=== PATIENT | female | born 1995 | race Caucasian/White ===

== ENCOUNTER → 2021-11-28 | Outpatient (CLI) | payer OTHER ==
[2021-11-28 15:47] LABS: HEMATOCRIT 34.9 % (36.0-47.0); MEAN CORPUSCULAR HEMOGLOBIN 30.8 pg (27.0-33.0); MEAN CORPUSCULAR HGB CONC 34.4 g/dl (32.0-36.5); MEAN CORPUSCULAR VOLUME 89.5 fl (80.0-96.0); PLATELET COUNT, AUTOMATED 257 10^3/uL (150-450); WHITE BLOOD COUNT 9.7 10^3/uL (4.0-10.0)
[2021-11-28 17:07] LABS: HEPATITIS C VIRUS ABY INDEX < 0.0 INDEX (<0.8); HIV 1&2 SCREEN CENTAUR NEGATIVE (NEGATIVE)
[2021-11-28 17:19] LABS: GC DNA AMPLIFICATION NEGATIVE (NEGATIVE)
== END ==
LOC: M PLALAB 14:00
PROVIDERS: ATTEND Advanced Practice Midwife
DX: Z34.81 Encounter for supervision of other normal pregnancy, first trimester (principal)
CPT/HCPCS: 36415; 85027; 86762; 86780; 86803; 86850; 86900; 86901; 87088; 87186; 87340; 87389; 87810; 87850; G0463

== ENCOUNTER → 2022-02-02 | Outpatient (CLI) | payer OTHER | LOC: M PLALAB 11:50 | PROVIDERS: ATTEND Obstetrics & Gynecology | DX: Z34.82 Encounter for supervision of other normal pregnancy, second trimester (principal); Z3A.00 Weeks of gestation of pregnancy not specified ==

== ENCOUNTER → 2022-03-12 | Outpatient (CLI) | payer OTHER | LOC: M WHC 11:36 | PROVIDERS: ATTEND Obstetrics & Gynecology | DX: Z36.2 Encounter for other antenatal screening follow-up (principal); Z3A.23 23 weeks gestation of pregnancy ==

== ENCOUNTER → 2022-03-23 | Outpatient (REF) | payer OTHER | LOC: M SFHCWAGY 17:28 | PROVIDERS: ATTEND Advanced Practice Midwife | DX: Z34.82 Encounter for supervision of other normal pregnancy, second trimester (principal) ==

== ENCOUNTER → 2022-04-17 | Outpatient (CLI) | payer OTHER ==
[2022-04-17 14:02] LABS: HEMOGLOBIN 10.6 g/dl (12.0-15.5); MEAN CORPUSCULAR HEMOGLOBIN 31.3 pg (27.0-33.0); MEAN CORPUSCULAR HGB CONC 33.1 g/dl (32.0-36.5); MEAN CORPUSCULAR VOLUME 94.4 fl (80.0-96.0); PLATELET COUNT, AUTOMATED 261 10^3/uL (150-450); RED BLOOD COUNT 3.39 10^6/uL (4.00-5.40); WHITE BLOOD COUNT 13.9 10^3/uL (4.0-10.0)
[2022-04-17 15:38] LABS: GC DNA AMPLIFICATION NEGATIVE (NEGATIVE)
== END ==
LOC: M PLALAB 08:14
PROVIDERS: ATTEND Advanced Practice Midwife
DX: Z36.89 Encounter for other specified antenatal screening (principal); Z3A.24 24 weeks gestation of pregnancy

== ENCOUNTER → 2022-05-15 | Outpatient (CLI) | payer OTHER ==
[2022-05-15 17:53] LABS: ALBUMIN 2.6 GM/DL (3.2-5.2); ALT/SGPT 192 U/L (12-78); BILIRUBIN,TOTAL 0.4 MG/DL (0.2-1.0); BLOOD UREA NITROGEN 5 MG/DL (7-18); CALCIUM LEVEL 9.2 MG/DL (8.5-10.1); CARBON DIOXIDE LEVEL 25 MEQ/L (21-32); CHLORIDE LEVEL 105 MEQ/L (98-107); CREATININE FOR GFR 0.67 MG/DL (0.55-1.30); GLOMERULAR FILTRATION RATE > 60.0 (>60); GLUCOSE, FASTING 83 MG/DL (70-100); POTASSIUM SERUM 4.5 MEQ/L (3.5-5.1); SODIUM LEVEL 135 MEQ/L (136-145)
== END ==
LOC: M PLALAB 13:08
PROVIDERS: ATTEND Advanced Practice Midwife
DX: O99.713 Diseases of the skin and subcutaneous tissue complicating pregnancy, third trimester (principal)

== ENCOUNTER 2022-05-25 18:55 | Outpatient (CLI) | payer OTHER ==
[~2022-05-25] VITALS: Ht 160 cm; Wt 98.5 kg
[2022-05-25 19:14] VITALS: BP 139/75
[2022-05-25 20:05] LABS: ALBUMIN 2.7 GM/DL (3.2-5.2); ALT/SGPT 212 U/L (12-78); BILIRUBIN,TOTAL 0.2 MG/DL (0.2-1.0); BLOOD UREA NITROGEN 5 MG/DL (7-18); CALCIUM LEVEL 9.5 MG/DL (8.5-10.1); CARBON DIOXIDE LEVEL 23 MEQ/L (21-32); CHLORIDE LEVEL 110 MEQ/L (98-107); CREATININE FOR GFR 0.73 MG/DL (0.55-1.30); GLOMERULAR FILTRATION RATE > 60.0 (>60); GLUCOSE, FASTING 114 MG/DL (70-100); POTASSIUM SERUM 4.2 MEQ/L (3.5-5.1); SODIUM LEVEL 141 MEQ/L (136-145); TOTAL PROTEIN 6.1 GM/DL (6.4-8.2)
== END 2022-05-25 21:11 | disposition home or self-care (01) ==
LOC: M LDO 18:55
PROVIDERS: ATTEND Advanced Practice Midwife
DX: O26.893 Other specified pregnancy related conditions, third trimester (principal); R10.11 Right upper quadrant pain; O26.613 Liver and biliary tract disorders in pregnancy, third trimester; Z3A.33 33 weeks gestation of pregnancy
CPT/HCPCS: 36415; 59025; 76705; 76816; 76820; 80053; 82239; G0463

== ENCOUNTER → 2022-06-14 | Outpatient (REF) | payer OTHER | LOC: M PLALAB 15:48 | PROVIDERS: ATTEND Specialist | DX: Z34.83 Encounter for supervision of other normal pregnancy, third trimester (principal) ==

== ENCOUNTER 2022-06-26 08:02 | Inpatient (IN) | payer OTHER ==
[~2022-06-26] VITALS: Ht 160 cm; Wt 99.6 kg
[2022-06-26] VITALS (31 sets, daily range): BP systolic 106–174; BP diastolic 51–102
[2022-06-26] MEDS ORDERED: PRENTAB9 PO (09:06)
[2022-06-26] MEDS ORDERED: URSO300C3 PO (09:08)
[2022-06-26] MEDS ORDERED: BENA25CA4 PO (09:09)
[2022-06-26] MEDS ORDERED: TUMS750C5 PO (09:09)
[2022-06-26] MEDS ORDERED: HOME MED LIST COMPLETE! XX SCH (09:10)
[2022-06-26] MEDS ORDERED: miSOPROStol 50MCG 1/2 TABLET PO ONE (09:35)
[2022-06-26] MEDS ORDERED: OXYTOCIN DRIP 30 UNITS in IV 1 EA IV PRN ×4 (09:35)
[2022-06-26] MEDS ORDERED: METHYLERGONOVINE MALEATE 0.2 MG/ML VIAL (J2210) IM PRN (09:35)
[2022-06-26] MEDS ORDERED: LACTATED RINGER'S 1000 ML IV PRN (09:35)
[2022-06-26] MEDS ORDERED: TRANEXAMIC ACID INJection 1,000 MG in NS 100 ML IV PRN (09:35)
[2022-06-26] MEDS ORDERED: CARBOPROST TROMETHAMINE 250 MCG/ML AMP IM PRN (09:35)
[2022-06-26] MEDS ORDERED: diphenhydrAMINE 50MG CAP PO PRN (09:35)
[2022-06-26 10:10] LABS: HEMATOCRIT 26.9 % (36.0-47.0); HEMOGLOBIN 8.9 g/dl (12.0-15.5); MEAN CORPUSCULAR HEMOGLOBIN 30.5 pg (27.0-33.0); MEAN CORPUSCULAR HGB CONC 33.1 g/dl (32.0-36.5); MEAN CORPUSCULAR VOLUME 92.1 fl (80.0-96.0); PLATELET COUNT, AUTOMATED 226 10^3/uL (150-450); RED BLOOD COUNT 2.92 10^6/uL (4.00-5.40); WHITE BLOOD COUNT 11.7 10^3/uL (4.0-10.0)
[2022-06-26 11:36] LABS: ALT/SGPT 210 U/L (12-78); BILIRUBIN,TOTAL 0.4 MG/DL (0.2-1.0); CREATININE FOR GFR 0.74 MG/DL (0.55-1.30); GLOMERULAR FILTRATION RATE > 60.0 (>60); LDH LACTATE DEHYDROGENASE 203 U/L (84-246); URIC ACID 6.2 MG/DL (2.6-6.0)
[2022-06-26] MEDS: ursodioL 300MG CAP PO SCH ×2 (15:09→20:59)
[2022-06-26] MEDS ORDERED: CALCIUM CARBONATE 500 MG CHEW U/D PO PRN (15:10)
[2022-06-26] MEDS ORDERED: OXYTOCIN DRIP 30 UNITS in IV 1 EA IV SCH (15:10)
[2022-06-26] MEDS: LR 1,000 ML IV SCH (15:41)
[2022-06-26] MEDS ORDERED: LR 500 ML IV PRN (20:55)
[2022-06-26] MEDS ORDERED: ONDANSETRON 4MG 2ML VIAL IV PRN (20:55)
[2022-06-26] MEDS ORDERED: ePHEDrine SULFATE 25 MG/5 ML(5MG/ML) SYRINGE IVP PRN (20:55)
[2022-06-26] MEDS ORDERED: NALOXONE INJ 0.4MG/1ML VIAL (J2310 PER 1MG) IV PRN (20:55)
[2022-06-26] MEDS ORDERED: EPIDURAL/PCA KEYS XX PRN (20:55)
[2022-06-26] MEDS ORDERED: REFLB XX ONE (20:56)
[2022-06-26] MEDS: diphenhydrAMINE 50MG/ML VIAL (J1200) IV PRN (23:55)
[2022-06-27] VITALS (44 sets, daily range): BP systolic 103–175; BP diastolic 52–95
[2022-06-27] MEDS: diphenhydrAMINE 50MG/ML VIAL (J1200) IV PRN ×2 (03:36→07:49)
[2022-06-27] MEDS: LR 1,000 ML IV SCH ×2 (03:36→03:43)
[2022-06-27] MEDS ORDERED: REFLB XX ONE (05:02)
[2022-06-27] MEDS: FENTANYL/ROPIVACAINE/NACL BAG 100 ML EPIDURAL SCH (05:05)
[2022-06-27] MEDS: ursodioL 300MG CAP PO SCH (08:12)
[2022-06-27 12:09] LABS: CORD GAS ABE V -3.6; CORD GAS HCO3 V 20.6 MEQ/L; CORD GAS O2 SAT V 85.7 %; CORD GAS PH V 7.387 UNITS; CORD GAS PO2 V 38.3 mmHg; CORD GAS SBC V 21.2 MEQ/L; CORD GAS TCO2 V 21.6 MEQ/L
[2022-06-27 12:10] LABS: CORD GAS ABE A -10.5; CORD GAS HCO3 A 20.8 MEQ/L; CORD GAS O2 SAT A 44.9 %; CORD GAS PH A 7.084 UNITS; CORD GAS PO2 A 24.9 mmHg; CORD GAS SBC A 15.2 MEQ/L; CORD GAS TCO2 A 22.9 MEQ/L
[2022-06-27] MEDS ORDERED: RHOGAM 300 MCG (1500 IU) INJ (J2790) IM SCH (12:35)
[2022-06-27] MEDS ORDERED: ACETAMINOPHEN TAB 650MG DOSE (2X325MG) PO PRN (12:35)
[2022-06-27] MEDS ORDERED: DIBUCAINE 1% OINTMENT 30GM TOP PRN (12:35)
[2022-06-27] MEDS ORDERED: METHYLERGONOVINE MALEATE 0.2 MG TAB PO PRN (12:35)
[2022-06-27] MEDS ORDERED: OXYTOCIN DRIP 30 UNITS in IV 1 EA IV SCH (12:35)
[2022-06-27] MEDS ORDERED: IBUPROFEN 800 MG TAB PO PRN (12:35)
[2022-06-27] MEDS: IBUPROFEN 600MG TAB PO PRN (14:26)
[2022-06-27] MEDS: ACETAMINOPHEN 500 MG TAB PO PRN ×2 (14:27→21:01)
[2022-06-27] MEDS: DOCUSATE SODIUM 100MG CAPSULE PO PRN (20:09)
[2022-06-28] MEDS: IBUPROFEN 600MG TAB PO PRN ×2 (05:09→21:13)
[2022-06-28 06:10] VITALS: BP 124/67
[2022-06-28] MEDS: PRENATAL VITAMINS CHEWABLE TABLET PO SCH (08:09)
[2022-06-28] MEDS: ACETAMINOPHEN 500 MG TAB PO PRN (13:50)
[2022-06-28 17:36] VITALS: BP 122/60
[2022-06-28] MEDS: DOCUSATE SODIUM 100MG CAPSULE PO PRN (21:14)
[2022-06-29 05:41] VITALS: BP 141/83
[2022-06-29] MEDS ORDERED: MEASLES,MUMPS,RUBELLA VACCINE INJ (MMR-II) (90707) SC.IMMUN ONE (09:00)
[2022-06-29] MEDS: PRENATAL VITAMINS CHEWABLE TABLET PO SCH (09:00)
[2022-06-29] MEDS ORDERED: ACET-683 PO (09:35)
[2022-06-29] MEDS ORDERED: IBUP80TA PO (09:35)
== END 2022-06-29 20:06 | disposition home or self-care (01) | DRG 805 ==
LOC: M LDI 08:02 → M OBS 06-27 15:18
PROVIDERS: ADMIT Obstetrics & Gynecology; ATTEND Advanced Practice Midwife
PROC: 10E0XZZ Delivery of Products of Conception, External Approach (ICD-10-PCS; principal; 2022-06-26)
PROC: 0KQM0ZZ Repair Perineum Muscle, Open Approach (ICD-10-PCS; 2022-06-26)
PROC: 10907ZC Drainage of Amniotic Fluid, Therapeutic from Products of Conception, Via Natural or Artificial Opening (ICD-10-PCS; 2022-06-26)
PROC: 3E0P7GC Introduction of Other Therapeutic Substance into Female Reproductive, Via Natural or Artificial Opening (ICD-10-PCS; 2022-06-26)
DX: O26.62 Liver and biliary tract disorders in childbirth (principal); Z37.0 Single live birth; K83.1 Obstruction of bile duct; O66.0 Obstructed labor due to shoulder dystocia; O69.81X0 Labor and delivery complicated by cord around neck, without compression, not applicable or unspecified; O70.1 Second degree perineal laceration during delivery; Z3A.38 38 weeks gestation of pregnancy

== ENCOUNTER → 2024-01-23 | Outpatient (REF) | payer OTHER ==
[~2024-01-23] MED LIST: ACET-683 PO; BENA25CA4 PO; IBUP80TA PO; PRENTAB9 PO; TUMS750C5 PO; URSO300C3 PO
== END ==
LOC: M SFHCWAGY 17:37
PROVIDERS: ATTEND Nurse Practitioner Family
DX: Z12.4 Encounter for screening for malignant neoplasm of cervix (principal); Z11.51 Encounter for screening for human papillomavirus (HPV)

== ENCOUNTER → 2024-04-09 | Outpatient (CLI) | payer OTHER | LOC: M WHC 08:53 | PROVIDERS: ATTEND Nurse Practitioner Family | DX: N83.201 Unspecified ovarian cyst, right side (principal) ==

== ENCOUNTER → 2024-07-14 | Outpatient (REF) | payer OTHER | LOC: M SFHCWAGY 12:38 | PROVIDERS: ATTEND Nurse Practitioner Family | DX: R30.0 Dysuria (principal) ==

== ENCOUNTER → 2024-07-27 | Outpatient (REF) | payer OTHER | LOC: M LAB REF 16:55 | PROVIDERS: ATTEND Family Medicine | DX: R30.0 Dysuria (principal) ==